=== PATIENT | male | born 1950 | race Caucasian/White ===

== ENCOUNTER 2020-02-14 15:01 | Emergency (ER) | payer MEDICARE, MEDICAID, SELFPAY ==
[2020-02-14 15:02] VITALS: BP 108/72; PULSE 107; RESP 22; TEMP 36.8; O2SAT 98; BMI 20.3
--- NOTE | 2020-02-14 15:20 | ED.DCSUM_ITS ---
History of Present Illness Chief Complaint: Shortness of Breath Informant: Patient Narrative: Patient states he has a history of COPD. He takes Symbicort daily. He also has a albuterol rescue inhaler which she is out of. He states for the past several days he has been having some intermittent shortness of breath. He denies any change in cough or sputum production. No fevers or rhinorrhea. States he called his doctor and they told him to come to the emergency room he also states that his pharmacy called and told him his albuterol inhaler is ready. He starts to tell me that he is having some difficulty walking around his neighborhood but then tells me that that is actually been going on for some time. He does not recall any pulmonary function testing. Past Medical History - Allergies and Home Meds Allergies/Adverse Reactions: Allergies Penicillins [PCN] Allergy (Verified 02/14/20 15:04) PT UNSURE OF REACTION Primary Care Physician: Julian Lopez MD [STAFF PHYSICIAN] - Review of Systems General: Denies: Chills, Fever, Sweats Eyes: Denies: Visual changes - bilaterally, Diplopia ENT: Denies: Rhinorrhea, Sore throat Cardiovascular: Denies: Chest pain, Palpitations Respiratory: Reports: Dyspnea, Dyspnea on exertion. Denies: Cough, Sputum, Orthopnea, Paroxysmal nocturnal dyspnea Gastrointestinal: Denies: Abdominal pain, Nausea, Vomiting, Diarrhea, Melena, Hematochezia Genitourinary: Denies: Dysuria, Hematuria, Frequency Musculoskeletal: Denies: Back pain, Extremity Pain Skin: Denies: Rash, Wounds Neurological: Denies: Headache, Weakness, Numbness Physical Exam Vital Signs/Narrative: Vital Signs Temp Pulse Resp BP Pulse Ox 02/14/20 15:02 98.2 F 107 H 22 H 108/72 98 Inital Vital Signs reviewed: Yes General: Well nourished, Well developed, No Acute Distress Head: Normocephalic, Atraumatic Eyes: Perrl, EOMI ENT: Moist mucous membranes, No rhinorrhea Neck: Supple, Nontender Cardiovascular: Regular rate, Regular rhythm, No murmurs Respiratory: No distress, CTA bilaterally, Chest nontender Abdomen: Soft, Nontender, Nondistended, Normal bowel sounds Back: Nontender, Normal Inspection Extremities: Nontender, No edema Skin: Normal color, No rash Neurological: Alert, Oriented x3, Cranial nerves II-XII grossly intact, Normal Strength, Normal Sensation Psychological: Normal affect, Normal Mood Diagnostic/Tx/Re-eval - EKG Initial EKG Interpretation: Sinus Rhythm - AG shows a sinus bradycardia at a rate of 55 without ectopy or concerning features of ACS, Sinus Bradycardia - Medical Decision Making Patient's chest x-ray is negative for infiltrate or effusion. He given a DuoNeb and his lungs really have not changed. Put him on a short course of prednisone. He states he has never seen a vice president fixed income. I will refer him to 1. Patient has to go to the pharmacy to potato picker his new albuterol inhaler. ED Disposition - Plan for ED Patient: Disposition: Home or Assisted Living Diagnosis: COPD exacerbation Instructions: ED COPD Flare Prescriptions: Prednisone [Deltasone] 40 mg PO DAILY #10 tab Prescription Printed Referrals: Julian Lopez MD [STAFF PHYSICIAN] - As Needed Papa Zhou MD [STAFF PHYSICIAN] - (to schedule an appointment with a lung specialist)
[2020-02-14 15:29] VITALS: O2SAT 95
[2020-02-14] MEDS: Ipratropium/Albuterol Sulfate 3 ML AMPUL.NEB INHALATION (15:34)
[2020-02-14 15:35] VITALS: PULSE 94; RESP 18; O2SAT 96
--- NOTE | 2020-02-14 15:54 | RAD_ITS ---
STUDY: X-RAY CHEST REASON FOR EXAM: Male, 69 years old. Copd with sob TECHNIQUE: PA and lateral views of the chest. COMPARISON: Comparison is made with prior examination dated April 28, 2010. FINDINGS: Mild degree of increased interstitial markings at the lung bases suggestive of scarring. These have progressed since prior study. There is no demonstrated pleural abnormality. Normal size heart. Normal mediastinum and homero. Normal visualized pulmonary arteries. There is atherosclerotic tortuosity of the aortic arch and descending thoracic aorta. There is demineralization of the osseous structures. Normal visualized ribs, clavicles, and shoulders. There is no demonstrated abnormality of the visualized soft tissue structures of the upper abdomen. RAD/Chest PA and Lateral IMPRESSION: Mild degree of increased interstitial markings at the lung bases suggestive of scarring. This has progressed as compared to prior study. Electronically Signed: Jhony Patricia, at 16:24 EDT , Service support ,
[2020-02-14 17:14] VITALS: BP 111/78; PULSE 89; RESP 18; O2SAT 96
== END 2020-02-14 17:15 | disposition home or self-care (01) ==
PROVIDERS: Emergency Provider Emergency Medicine; PCP Family Medicine
DX: J44.1 Chronic obstructive pulmonary disease with (acute) exacerbation (principal); R00.1 Bradycardia, unspecified; Z88.0 Allergy status to penicillin; R26.2 Difficulty in walking, not elsewhere classified
CPT/HCPCS: 71046; 94640; 99282